=== PATIENT | male | born 1950 | race Caucasian/White ===

== ENCOUNTER → 2020-09-18 | Outpatient (CLI) | payer MEDICARE, OTHER ==
[~2020-09-18] MED LIST: LEVSOD150; METO10 PO; OXYACE7.5T PO; RXOXYACE PO
== END ==
LOC: LAB 07:25 → LAB SHORT 07:25
DX: D48.5 Neoplasm of uncertain behavior of skin (principal)
CPT/HCPCS: 88312

== ENCOUNTER 2024-02-14 08:11 | Day surgery (SDC) | payer MEDICARE ==
[~2024-02-14] VITALS: Ht 180.3 cm; Wt 106.0 kg
[~2024-02-14 08:11] MED LIST changes: +Lactated Ringer's 1,000 ML IV ONE; +TAMS.4ER PO; +propofoL 50 ML IV ONE
[2024-02-14] MEDS ORDERED: Zocor20 MG (08:46)
[2024-02-14] MEDS ORDERED: Lactated Ringer's 1,000 ML IV ONE (09:08)
--- NOTE | 2024-02-14 09:09 | NUR ---
02/14/24 0909 Wesley Paulino CALL LIGHT WITHIN REACH.
[2024-02-14 10:14] VITALS: BP 129/83
== END 2024-02-14 10:14 | disposition home or self-care (01) ==
LOC: ORSCSDS 08:11
PROVIDERS: Surgery
PROC: 0DBN8ZX Excision of Sigmoid Colon, Via Natural or Artificial Opening Endoscopic, Diagnostic (ICD-10-PCS; principal; 2024-02-14 09:30)
PROC: 0DBK8ZX Excision of Ascending Colon, Via Natural or Artificial Opening Endoscopic, Diagnostic (ICD-10-PCS; principal; 2024-02-14 09:30)
PROC: 0DBL8ZX Excision of Transverse Colon, Via Natural or Artificial Opening Endoscopic, Diagnostic (ICD-10-PCS; principal; 2024-02-14 09:30)
PROC: 0DBM8ZX Excision of Descending Colon, Via Natural or Artificial Opening Endoscopic, Diagnostic (ICD-10-PCS; principal; 2024-02-14 09:30)
DX: Z12.11 Encounter for screening for malignant neoplasm of colon (principal); D12.2 Benign neoplasm of ascending colon; K63.5 Polyp of colon; D12.5 Benign neoplasm of sigmoid colon; E78.5 Hyperlipidemia, unspecified; K57.30 Diverticulosis of large intestine without perforation or abscess without bleeding; E03.9 Hypothyroidism, unspecified; E78.1 Pure hyperglyceridemia; E66.9 Obesity, unspecified; N40.0 Benign prostatic hyperplasia without lower urinary tract symptoms; Z79.899 Other long term (current) drug therapy
CPT/HCPCS: 88305; J2704; J7120